=== PATIENT | female | born 1935 | race Caucasian/White ===

== ENCOUNTER 2024-08-02 05:27 | Emergency (ER) | payer MEDICARE, SELFPAY ==
[2024-08-02 05:28] VITALS: BP 177/105; PULSE 105; RESP 18; TEMP 36.3; O2SAT 96; BMI 28.4
--- NOTE | 2024-08-02 05:35 | RAD_ITS ---
EXAM: XR LEFT SHOULDER COMPLETE, 2 OR MORE VIEWS CLINICAL INDICATION: INJURY TECHNIQUE: Two or more views of the left shoulder. COMPARISON: No relevant prior studies available. FINDINGS: BONES/JOINTS: Impacted proximal humeral metaphyseal fracture as well as a probable fracture through the greater tuberosity. Degenerative changes of the acromioclavicular and glenohumeral joints. No sclerotic or destructive changes observed. SOFT TISSUES: Unremarkable. No soft tissue swelling or gas. No radiopaque foreign body. RAD/Shoulder min 2 Views IMPRESSION: Impacted proximal humeral metaphyseal fracture as well as a probable fracture through the greater tuberosity. Electronically Signed: Damion Bean MD at 6:19 EDT ,
--- NOTE | 2024-08-02 05:35 | EX.ED.UPPERE ---
HPI History of Present Illness Chief Complaint: Upper Extremity Injury Informant: patient and family Narrative Narrative: 88-year-old female presenting to the room with left shoulder pain. Reportedly the patient fell last night. This injury occurred approximately 2000 hours she states that she recently moved in with her daughter. Daughter states that she took the night lights out of her room. She is unsure of what she hit or how she landed. She does have some memory issues/Alzheimer's. She denies any other injuries. She notes pain in the mid to proximal left arm with any movement. [facility] Medical History Cholecystectomy planned Congestive heart failure (CHF) Hypertension Home Medications ?Medication ?Instructions ?Recorded ?Last Taken ?Type aspirin 81 mg capsule 81 mg PO DAILY 08/02/24 Unknown History cholecalciferol (vitamin D3) 50 2,000 unit PO BID 08/02/24 Unknown History mcg (2,000 unit) capsule (D3-2000) diphenoxylate-atropine 2.5 1 tab PO DAILY 08/02/24 Unknown History mg-0.025 mg tablet (Lomotil) escitalopram oxalate 20 mg tablet 20 mg PO DAILY 08/02/24 Unknown History furosemide 20 mg tablet (Lasix) 20 mg PO DAILY 08/02/24 Unknown History levothyroxine 75 mcg tablet 75 mcg PO DAILY 08/02/24 Unknown History (Euthyrox) melatonin 3 mg capsule 3 mg PO QHS 08/02/24 Unknown History mirtazapine 7.5 mg tablet 7.5 mg PO QHS 08/02/24 Unknown History omeprazole 20 mg capsule,delayed 20 mg PO DAILY 08/02/24 Unknown History release oxycodone 5 mg tablet 5 mg PO TID PRN pain 3 days #12 08/02/24 Unknown Rx tabs potassium 20 mg chewable tablet 10 mg PO 08/02/24 Unknown History vitamins A,C,T-cudd-ufqhst 2,148 1 tab PO DAILY 08/02/24 Unknown History mcg-113 mg-45 mg-17.4 mg tablet (Eye Multivitamin) Allergy/AdvReac Type Severity Reaction Status Date / Time No Known Allergies Allergy Verified 08/02/24 05:33 Surgical History H/O: hysterectomy Social History Smoking Status: Never smoker ROS ROS ED Constitutional Constitutional ED: Denies chills, fever(s) or weight loss Eyes Eyes: Denies change in vision or diplopia ENT ENT ED: Denies ear pain, rhinorrhea or sore throat Cardiovascular Cardiovascular: Denies chest pain, orthopnea, palpitations or racing heartbeat Respiratory/Chest Respiratory/Chest: Denies cough, dyspnea or orthopnea Gastrointestinal Gastrointestinal: Denies abdominal pain, diarrhea, nausea or vomiting Genitourinary Genitourinary ED: Denies dysuria, hematuria or urinary frequency Musculoskeletal Musculoskeletal: Reports other Details: See history of present illness ; Denies arthralgias, back pain, myalgias or neck pain Integumentary Denies abscess or rash Neurologic Neurologic: Denies headache(s), paresthesias or weakness Psychiatric Psychiatric: Denies anxiety, depression, suicidal ideation or suicidal thoughts Endocrine Endocrinology: Denies polydipsia, polyphagia or polyuria Allergic/Immunologic Allergic/Immunologic ED: Denies mouth swelling, tongue swelling or urticaria EXAM Physical Exam Const Vital Signs: 08/02/24 05:28 Temperature 97.4 F L Temperature Source Oral Pulse Rate 105 H Respiratory Rate 18 Blood Pressure 177/105 H Blood Pressure Mean 129 Pulse Ox 96 Oxygen Delivery Method Room Air Positive well nourished and well developed General Appearance ED: well developed HEENT Reports normocephalic, head/scalp atraumatic and moist mucous membranes Eyes PERRL and EOMs intact bilaterally Neck full ROM, no lymphadenopathy, supple and no JVD Resp normal respiratory effort and clear to auscultation bilaterally Cardio regular rate, regular rhythm and no murmurs GI normal to inspection, nondistended, normoactive bowel sounds and non-tender Palpation: soft Back/Spine no CVA tenderness and normal ROM Extremity Extremity Narrative: Limited range of motion of the left shoulder. General Extremety ED: Negative for edema General Extremity: Negative for edema Neuro CN's II-XII intact bilaterally Sensorium / Orientation: alert, oriented to person, oriented to place and oriented to time Motor Exam: strength 5/5 throughout Psych mental status grossly normal Mood & Affect: Negative for depressed or tearful Skin no rashes or lesions noted and no wounds MDM MDM MDM Narrative Medical decision making narrative: Differential diagnosis includes but not limited to fracture sprain strain rotator cuff injury neurovascular injury I depend interpretation of the plain films of the left shoulder is a acute proximal humerus fracture. Patiently placed in a sling. She states Tylenol has helped her throughout the night and she would like to stick with that. I will write for a few oxycodone for breakthrough pain. We recommend ice. Daughter states that they would like to follow-up with Dr. Tran which I think would be appropriate. History & Record Review Discussion w/independent historian: Patient and Family Discharge Plan Triage Chief Complaint: Upper Extremity Injury ED Provider: Derek Roberts Dx/Rx/DC Orders Clinical Impression: Fall, Fracture of proximal end of left humerus Instructions: ED Fracture, Shoulder Prescriptions: New oxycodone 5 mg tablet 5 mg PO TID PRN (Reason: pain) 3 Days Qty: 12 0RF No Action diphenoxylate-atropine [Lomotil] 2.5-0.025 mg tablet 1 tab PO DAILY levothyroxine [Euthyrox] 75 mcg tablet 75 mcg PO DAILY Patient Comments: THURSDAY TAKES 150MG furosemide [Lasix] 20 mg tablet 20 mg PO DAILY potassium 20 mg tablet,chewable 10 mg PO Patient Comments: 10MEQ TIDX WEEK escitalopram oxalate 20 mg tablet 20 mg PO DAILY mirtazapine 7.5 mg tablet 7.5 mg PO QHS melatonin 3 mg capsule 3 mg PO QHS aspirin 81 mg capsule 81 mg PO DAILY cholecalciferol (vitamin D3) [D3-2000] 50 mcg (2,000 unit) capsule 2,000 unit PO BID omeprazole 20 mg capsule,delayed release(DR/EC) 20 mg PO DAILY Eye Multivitamin 2,148 mcg-113 mg-45 mg-17.4mg tablet 1 tab PO DAILY Rx Instructions: administer with AM and PM meals Primary Care Provider: KRISTAN BETTENCOURT Referrals: Job Tran MD [Med Staff - Active Staff] - As soon as possible NOT,DEFINED [Non-Staff] - Print Language: Romanian Disposition Disposition: Home, Self Care
[2024-08-02 06:17] VITALS: BP 143/79; PULSE 92; RESP 18; TEMP 36.1; O2SAT 94
== END 2024-08-02 06:32 | disposition home or self-care (01) ==
PROVIDERS: Emergency Provider Emergency Medicine; Visit Provider Emergency Medicine
DX: S42.292A Other displaced fracture of upper end of left humerus, initial encounter for closed fracture (principal); I11.0 Hypertensive heart disease with heart failure; I50.9 Heart failure, unspecified; G30.9 Alzheimer's disease, unspecified; W19.XXXA Unspecified fall, initial encounter; Z79.82 Long term (current) use of aspirin; Z79.890 Hormone replacement therapy; Z79.899 Other long term (current) drug therapy
CPT/HCPCS: 73030; 99282

== ENCOUNTER 2025-01-09 12:18 | Emergency (ER) | payer MEDICARE, SELFPAY ==
[2025-01-09] VITALS (12 sets, daily range): BP systolic 124–161; BP diastolic 67–98; PULSE 81–122; RESP 14–30; TEMP 36.4–36.7; O2SAT 91–97; BMI 30.7
--- NOTE | 2025-01-09 13:27 | RAD_ITS ---
EXAM: XR Chest, 2 Views CLINICAL INDICATION: TECHNIQUE: Frontal and lateral views of the chest. COMPARISON: No relevant prior studies available. FINDINGS: LUNGS AND PLEURAL SPACES: See below. HEART: Cardiomegaly with mild congestion. MEDIASTINUM: Unremarkable. Normal mediastinal contour. BONES/JOINTS: Unremarkable. No acute fracture. RAD/Chest PA and Lateral IMPRESSION: Cardiomegaly with mild congestion. [facility]
--- NOTE | 2025-01-09 13:27 | EKG12_ITS ---
Test Reason : Blood Pressure : */* mmHG Vent. Rate : 80 BPM Atrial Rate : 80 BPM P-R Int : 152 ms QRS Dur : 140 ms QT Int : 454 ms P-R-T Axes : 41 -36 107 degrees QTcB Int : 523 ms Sinus rhythm with occasional Premature ventricular complexes Left axis deviation Left bundle branch block Abnormal ECG Confirmed by Mendoza Spain ([id number]), scientific editor AVILA HA ([id number]) on 01/10/2025 10:56:02 AM Referred By: Confirmed By: Mendoza Spain
--- NOTE | 2025-01-09 13:37 | EX.ED.DYSGE1 ---
HPI History of Present Illness Chief Complaint: GI Bleed Narrative Narrative: Chief complaint and HPI: Hematemesis. 89-year-old female with past medical history of HTN, CHF, dementia, hypothyroidism, and PUD presents for evaluation of hematemesis. History is slightly limited as patient has dementia. Per daughter, shortly after eating breakfast patient had an episode of coughing and then developed 1 episode of hematemesis. Hematemesis was bright red blood. Daughter believes it came from her vomit and not from her cough. Patient states it came from vomiting as well. Currently denies any symptoms. Daughter states for the past several weeks that the patient has been endorsing increased fatigue and intermittent lightheadedness. She has not seen her PCP. She is not on blood thinners but on aspirin. Patient currently not endorsing any lightheadedness. Patient and daughter deny any fever, chills, shortness of breath, URI symptoms, chest pain, frequent coughing, abdominal pain, diarrhea, constipation, dysuria, dark or bloody stools. Has been eating and drinking well. Review of systems: See HPI Medications: As listed on the chart Allergies: As listed on the chart PFSH: Per chart Vital signs: As listed on the chart. Reviewed. Physical exam: Gen: A&O x3, NAD Head: Normocephalic, atraumatic Eyes: No sclera icterus, conjunctiva clear, PERRL, EOMI ENT: Moist mucous membranes, no dried blood in the mouth Neck: Trachea midline, No JVD CV: RRR, no murmurs, no peripheral edema Resp: Lungs CTA BL, no w/r/c GI: Abd soft, non-distended, non-tender, no r/r/g Rectal: Normal external examination. No evidence of hemorrhoids or fissures. Normal tone and sensation. No masses, fluctuance, or tenderness. No pain out of proportion. Stool brown. : No CVA tenderness Musc: Full ROM, no deformity Skin: Warm, dry Neuro: Alert, oriented, grossly intact, sensation intact Psych: Cooperative, appropriate mood and affect [facility] Medical History Cholecystectomy planned Congestive heart failure (CHF) Hypertension Home Medications ?Medication ?Instructions ?Recorded ?Last Taken ?Type aspirin 81 mg capsule 81 mg PO DAILY 08/02/24 Unknown History cholecalciferol (vitamin D3) 50 2,000 unit PO BID 08/02/24 Unknown History mcg (2,000 unit) capsule (D3-2000) diphenoxylate-atropine 2.5 1 tab PO DAILY 08/02/24 Unknown History mg-0.025 mg tablet (Lomotil) escitalopram oxalate 20 mg tablet 20 mg PO DAILY 08/02/24 Unknown History furosemide 20 mg tablet (Lasix) 20 mg PO DAILY 08/02/24 Unknown History levothyroxine 75 mcg tablet 75 mcg PO DAILY 08/02/24 Unknown History (Euthyrox) melatonin 3 mg capsule 3 mg PO QHS 08/02/24 Unknown History mirtazapine 7.5 mg tablet 7.5 mg PO QHS 08/02/24 Unknown History omeprazole 20 mg capsule,delayed 20 mg PO DAILY 08/02/24 Unknown History release oxycodone 5 mg tablet 5 mg PO Q8H PRN pain 3 days #9 tabs 08/02/24 Unknown Rx oxycodone 5 mg tablet 5 mg PO TID PRN pain 3 days #12 08/02/24 Unknown Rx tabs potassium 20 mg chewable tablet 10 mg PO 08/02/24 Unknown History vitamins A,C,W-znig-hlvoev 2,148 1 tab PO DAILY 08/02/24 Unknown History mcg-113 mg-45 mg-17.4 mg tablet (Eye Multivitamin) Allergy/AdvReac Type Severity Reaction Status Date / Time No Known Allergies Allergy Verified 01/09/25 12:19 Surgical History H/O: hysterectomy Social History Smoking Status: Never smoker EXAM Physical Exam Const Vital Signs: 01/09/25 12:19 01/09/25 13:20 01/09/25 14:00 Temperature 97.5 F L Temperature Source Oral Pulse Rate 122 H 89 81 Respiratory Rate 20 H 14 15 Blood Pressure 155/96 H 124/67 H 145/78 H Blood Pressure Mean 115 86 100 Pulse Ox 96 94 96 Oxygen Delivery Method Room Air Room Air Room Air 01/09/25 15:00 01/09/25 15:14 01/09/25 15:15 Temperature Temperature Source Pulse Rate 90 84 87 Respiratory Rate 16 14 21 H Blood Pressure 151/85 H 151/85 H Blood Pressure Mean 107 102 Pulse Ox 96 95 96 Oxygen Delivery Method Room Air 01/09/25 15:30 01/09/25 15:45 01/09/25 16:00 Temperature Temperature Source Pulse Rate 89 88 Respiratory Rate 18 19 H Blood Pressure 144/86 H 153/96 H 151/91 H Blood Pressure Mean 102 114 106 Pulse Ox 97 93 Oxygen Delivery Method 01/09/25 16:15 01/09/25 16:30 Temperature Temperature Source Pulse Rate 102 H 92 Respiratory Rate 30 H 26 H Blood Pressure 161/98 H 153/85 H Blood Pressure Mean 112 105 Pulse Ox 91 96 Oxygen Delivery Method MDM MDM MDM Narrative Medical decision making narrative: 89-year-old female with past medical history of HTN, CHF, dementia, hypothyroidism, and PUD presents for evaluation of hematemesis. Differential diagnosis includes but is not limited to hematemesis, hemoptysis, anemia, pneumonia, electrolyte abnormality, viral illness, gastritis, ulcer, PE, ACS. On presentation patient is hypertensive and tachycardic. Patient currently asymptomatic without any complaints. Laboratory workup ordered including chest x-ray. Do not think any CT abdomen pelvis is needed as patient is not endorsing any abdominal pain and physical exam is benign. EKG and chest x-ray reviewed. CBC without leukocytosis or anemia. CMP with renal insufficiency. Creatinine is 1.46. I do not have previous labs to compare to. No transaminitis. Lipase unremarkable. Lactic acid unremarkable. BNP is 739, this is within normal limits given her age. D-dimer elevated at 1.55. Cannot rule out PE. CTA chest ordered. Will give small 500 cc bolus due to contrast. CTA negative for PE. Patient has scattered mediastinal lymph nodes some of which are the upper limits of normal in size. Most likely reactive. Moderate esophageal hiatal hernia. UA negative for UTI. Troponin 22 and 25. On reevaluation, patient is now endorsing some chest heaviness. Patient has not had any recurrent hematemesis or hemoptysis. Patient and daughter were updated on all the results. Given that patient is having chest heaviness with elevated troponin as well as an episode of hematemesis I recommended admission for further cardiac workup and observation for hematemesis. Patient states she does not want to be admitted. Patient states that she would not want a stress test or cardiac catheterization. She further states that she would not want any surgery or invasive procedures such as endoscopy. She states that she does not want any further workup or medication changes. Daughter is in the room and is a nurse and she states that she would like to respect the patient's wishes and that she has stated in the past that she would not want any aggressive or further treatment. I did personally explain to the patient as well as her daughter that I cannot rule out a heart attack at this time and her troponins are concerning for cardiac injury/ischemia. I further do not have the cause or reasoning for her hematemesis. I personally explained to them that choosing to discharge home may result in permanent bodily harm or . I discussed at length that without further evaluation and monitoring there may be unforeseen circumstances or deterioration causing deterioration or because of discharge. Patient is alert and oriented and can make her own decisions despite her dementia. Daughter is a nurse and also confirmed understanding that there is a risk to and permanent bodily harm. They both accepted the risks and understand them. They were explained the benefits to admission. Patient was able to ambulate in the emergency department without difficulty. Plan will be to discharge home. Patient is to follow-up with PCP. I did educate the patient as well as daughter that if patient's symptoms worsen or change please return back to the ED. I also informed that if patient changes her mind and decides that she wants further treatment to return back to the ED. They confirmed understanding of the plan. Patient discharged home. EKG: Interpreted by me/EM physician: EKG shows normal sinus rhythm with PVCs. Left bundle branch block. No acute ischemic changes. Heart rate 80. Diagnostic: Interpreted by me/EM physician: Chest x-ray shows cardiomegaly with mild vascular congestion Impression: 1. Hematemesis 2. Elevated troponin with chest heaviness, concern for ACS 3. Renal insufficiency versus MIKEY Lab Data Labs: Laboratory Results - last 24 hr 01/09/25 01/09/25 01/09/25 12:30 13:37 13:44 WBC 7.0 RBC 4.30 Hgb 13.5 Hct 40.8 MCV 94.9 MCH 31.4 MCHC 33.1 RDW Std Deviation 47.9 H RDW Coeff of [place] 13.7 Plt Count 233 MPV 11.9 Immature Gran % (Auto) 0.300 Neut % (Auto) 42.3 L Lymph % (Auto) 43.8 H Frontier % (Auto) 7.2 Eos % (Auto) 4.7 Baso % (Auto) 1.7 H Absolute Neuts (auto) 3.0 Absolute Lymphs (auto) 3.06 Nucleated RBC % 0 D-Dimer Quant (PE/DVT) 1.55 H* Sodium 142 Potassium 3.9 Chloride 107 Carbon Dioxide 22.4 Anion Gap 13 BUN 24 H Creatinine 1.46 H Estim Creat Clear Calc 26.95 L Est GFR (MDRD) Non-Af 35 L BUN/Creatinine Ratio 16.2 Glucose 102 H Lactic Acid 1.5 Calcium 9.8 Total Bilirubin 0.38 AST 20 ALT 7 Alkaline Phosphatase 127 H Troponin T High Sens 22 H Troponin T Hi Sens 2 Hr NT pro BNP II 739 Total Protein 6.9 Albumin 3.8 Globulin 3.2 Albumin/Globulin Ratio 1.2 Lipase 61 Urine Color Yellow Urine Clarity Clear Urine pH 7.0 Ur Specific [place] 1.010 Urine Protein Negative Urine Glucose (UA) Normal Urine Ketones Negative Urine Occult Blood 10 H Urine Nitrite Negative Urine Bilirubin Negative Urine Urobilinogen Normal Ur Leukocyte Esterase Negative Urine RBC 0-5 SEEN Urine WBC 0 SEEN Ur Squamous Epith Cells 0 SEEN Urine Bacteria 0 SEEN Urine Mucus 0 SEEN 01/09/25 15:35 WBC RBC Hgb Hct MCV MCH MCHC RDW Std Deviation RDW Coeff of [place] Plt Count MPV Immature Gran % (Auto) Neut % (Auto) Lymph % (Auto) Frontier % (Auto) Eos % (Auto) Baso % (Auto) Absolute Neuts (auto) Absolute Lymphs (auto) Nucleated RBC % D-Dimer Quant (PE/DVT) Sodium Potassium Chloride Carbon Dioxide Anion Gap BUN Creatinine Estim Creat Clear Calc Est GFR (MDRD) Non-Af BUN/Creatinine Ratio Glucose Lactic Acid Calcium Total Bilirubin AST ALT Alkaline Phosphatase Troponin T High Sens Troponin T Hi Sens 2 Hr 25 H NT pro BNP II Total Protein Albumin Globulin Albumin/Globulin Ratio Lipase Urine Color Urine Clarity Urine pH Ur Specific [place] Urine Protein Urine Glucose (UA) Urine Ketones Urine Occult Blood Urine Nitrite Urine Bilirubin Urine Urobilinogen Ur Leukocyte Esterase Urine RBC Urine WBC Ur Squamous Epith Cells Urine Bacteria Urine Mucus Radiography Diagnostic Testing: Clinical Impression(s) from Imaging Studies Chest X-Ray 01/09/25 13:27 IMPRESSION: Cardiomegaly with mild congestion. Reading Location: [facility] Chest CTA 01/09/25 14:15 IMPRESSION: 1. No pulmonary embolism is identified. Some of the distal pulmonary arteries cannot be evaluated due to suboptimal opacification. 2. Scattered mediastinal lymph nodes some of which are upper limits of normal in size and are most likely reactive lymph nodes. 3. Moderate esophageal hiatal hernia. Reading Location: [facility] Discharge Plan Triage Chief Complaint: GI Bleed ED Provider: Art Tai Dx/Rx/DC Orders Clinical Impression: Hematemesis of unknown cause Instructions: GI Bleeding Causes and Tests Prescriptions: No Action diphenoxylate-atropine [Lomotil] 2.5-0.025 mg tablet 1 tab PO DAILY levothyroxine [Euthyrox] 75 mcg tablet 75 mcg PO DAILY Patient Comments: THURSDAY TAKES 150MG furosemide [Lasix] 20 mg tablet 20 mg PO DAILY potassium 20 mg tablet,chewable 10 mg PO Patient Comments: 10MEQ TIDX WEEK escitalopram oxalate 20 mg tablet 20 mg PO DAILY mirtazapine 7.5 mg tablet 7.5 mg PO QHS melatonin 3 mg capsule 3 mg PO QHS aspirin 81 mg capsule 81 mg PO DAILY cholecalciferol (vitamin D3) [D3-2000] 50 mcg (2,000 unit) capsule 2,000 unit PO BID omeprazole 20 mg capsule,delayed release(DR/EC) 20 mg PO DAILY Eye Multivitamin 2,148 mcg-113 mg-45 mg-17.4mg tablet 1 tab PO DAILY Rx Instructions: administer with AM and PM meals oxycodone 5 mg tablet 5 mg PO TID PRN (Reason: pain) 3 Days Qty: 12 0RF oxycodone 5 mg tablet 5 mg PO Q8H PRN (Reason: pain) 3 Days Qty: 9 0RF Primary Care Provider: KRISTAN BETTENCOURT Referrals: KRISTAN BETTENCOURT [Other] - 3-5 Days Activity Restrictions/Additional Instructions: Follow-up with your primary care physician. Return back to the ED if symptoms change or recur. Return back to the ED if you decide that you would like to undergo further treatment which you currently declined. Print Language: Somali Disposition Disposition: Home, Self Care
[2025-01-09 13:40] LABS: Absolute Lymphocyte Count 3.06 X10^3/uL (0.83-4.51); Basophil# 0.12 X10^3/uL; Basophil% 1.7 % (0-1); Eosinophil# 0.33 X10^3/uL; Eosinophils% 4.7 % (0-5); Hematocrit 40.8 % (37-47); Hemoglobin 13.5 g/dL (12.0-15.0); Lymphocyte # 3.06 X10^3/ul (0.83-4.51); Lymphocyte % 43.8 % (19-41); Mean Corp Hgb Conc 33.1 g/dL (32-36); Mean Corpuscular Hgb 31.4 pg (27.0-32.0); Mean Corpuscular Volume 94.9 fL (81-99); Mean Platelet Vol. 11.9 fl (6.2-12.0); Monocyte% 7.2 % (0-10); NRBC Flagged by Analyzer 0 % (0-5); Neutrophil # 2.96 X10^3/uL (2.7-7.7); Neutrophil % 42.3 % (47-70); Platelet Count 233 K/mm3 (150-450); RBC Distribution Width CV 13.7 % (11.6-14.6); RBC Distribution Width SD 47.9 fl (35.1-43.9)
[2025-01-09 13:54] LABS: Bacteria 0 SEEN /hpf (None Seen); Mucous, Urine 0 SEEN /hpf (<or=2+); Squamous Epithelial Cells - UA 0 SEEN /hpf (5-10); White Blood Cells 0 SEEN /hpf (0-5)
[2025-01-09 13:56] LABS: D-Dimer Quantitative (DVT/PE) 1.55 FEU/ug/m (0.27-0.49)
[2025-01-09 14:00] LABS: Color, Urine Yellow (Yellow); Glucose, Dipstick Normal (Normal); Ketone-Dipstick Negative (Negative); Leukocyte Esterase-Dipstick Negative /ul (Negative); Nitrite-Dipstick Negative (Negative); Occult Blood-Urine 10 /ul (Negative); Protein-Dipstick Negative (Negative); Urine Bilirubin Dipstick Negative (Negative); Urine Clarity Clear (Clear); Urine Urobilinogen Normal (Normal)
[2025-01-09 14:14] LABS: ALB/GLOB Ratio 1.2 RATIO (0.9-2.4); AST(SGOT) 20 U/L (<=31); Alanine Aminotransfer ALT/SGPT 7 U/L (<=34); Albumin, Serum 3.8 g/dL (3.4-4.8); Alkaline Phosphatase 127 U/L (35-104); Anion Gap 13 (5-15); BUN 24 mg/dL (4-19); BUN/Creat Ratio 16.2 RATIO (10-20); Calcium,Total 9.8 mg/dL (7.6-11.0); Carbon Dioxide 22.4 mmol/L (21.0-32.0); Chloride 107 mmol/L (98-108); Creatinine, Serum 1.46 mg/dL (0.70-1.20); EST Glomerular Filtration Rate 35 (>60); Estimated Creatinine Clearance 26.95 ml/min (50-250); Globulin 3.2 g/dL (2.2-4.2); Glucose 102 mg/dL (70-99); Lipase 61 U/L (13-75); Potassium 3.9 mmol/L (3.3-5.1); Pro- Brain NATRIURETIC PEPTIDE 739 pg/mL (<=1800); Protein, Total 6.9 g/dL (5.9-8.4); Sodium Level 142 mmol/L (133-145); Total Bilirubin 0.38 mg/dL (0.00-1.30)
--- NOTE | 2025-01-09 14:15 | CT_ITS ---
EXAM: CT Angiography Chest Without and With Intravenous Contrast CLINICAL INDICATION: TECHNIQUE: Axial computed tomographic angiography images of the chest without and with intravenous contrast. This CT exam was performed using one or more of the following dose reduction techniques: automated exposure control, adjustment of the mA and/or kV according to patient size, and/or use of iterative reconstruction technique. MIP reconstructed images were created and reviewed. COMPARISON: No relevant prior studies available. FINDINGS: LIMITATIONS: Suboptimal opacification of the pulmonary arteries. PULMONARY ARTERIES: No pulmonary embolism is identified. Some of the distal pulmonary arteries cannot be evaluated due to suboptimal opacification. AORTA: Scattered calcified atherosclerotic disease of aorta. No thoracic aortic aneurysm. LUNGS AND PLEURAL SPACES: Lung emphysema/COPD. No mass. No consolidation. No significant effusion. No pneumothorax. HEART: Unremarkable. No cardiomegaly. No significant pericardial effusion. No evidence of RV dysfunction. MEDIASTINUM: Scattered mediastinal lymph nodes some of which are upper limits of normal in size and are most likely reactive lymph nodes. Moderate esophageal hiatal hernia. BONES/JOINTS: No acute fracture. No dislocation. SOFT TISSUES: Unremarkable. LYMPH NODES: See above. CT/CTA Chest W/WO Contrast IMPRESSION: 1. No pulmonary embolism is identified. Some of the distal pulmonary arteries cannot be evaluated due to suboptimal opacification. 2. Scattered mediastinal lymph nodes some of which are upper limits of normal in size and are most likely reactive lymph nodes. 3. Moderate esophageal hiatal hernia. Reading Location: [facility]
[2025-01-09 14:35] LABS: Lactic Acid 1.5 mmol/L (0.0-2.0)
[2025-01-09 14:46] LABS: Troponin T High Sensitivity 22 ng/L (<=14)
[2025-01-09 15:04] LABS: Red Blood Cells-Urine 0-5 SEEN /hpf (0-5)
[2025-01-09] MEDS: 0.9% Normal Saline (500mL Bag) 500 ML 1000 ML IV (15:19)
[2025-01-09 16:09] LABS: Troponin T High Sens 2 HR 25 ng/L (<=14)
--- NOTE | 2025-01-09 16:45 | ED.RN ---
This RN discussed the risks of leaving without treatment. Pt verbalizes she understands and states she is a DNR CC. Dr Cain at bedside to discuss as well. Pt and family member verbalizes the risks.
== END 2025-01-09 16:46 | disposition home or self-care (01) ==
PROVIDERS: Emergency Provider Surgery; Visit Provider Surgery
DX: K92.0 Hematemesis (principal); I11.0 Hypertensive heart disease with heart failure; I50.9 Heart failure, unspecified; F03.90 Unspecified dementia, unspecified severity, without behavioral disturbance, psychotic disturbance, mood disturbance, and anxiety; Z87.11 Personal history of peptic ulcer disease; R79.89 Other specified abnormal findings of blood chemistry; Z11.52 Encounter for screening for COVID-19; K44.9 Diaphragmatic hernia without obstruction or gangrene; E03.9 Hypothyroidism, unspecified; Z79.82 Long term (current) use of aspirin; Z79.890 Hormone replacement therapy; Z79.899 Other long term (current) drug therapy
CPT/HCPCS: 71046; 71275; 80053; 81001; 82274; 83605; 83690; 83880; 84484; 85025; 85379; 87631; 93005; 96360; 99284; Q9967; A4216

== ENCOUNTER → 2025-03-25 | Outpatient (CLI) | payer MEDICARE, SELFPAY ==
[2025-03-25 15:53] LABS: Mucous, Urine 0 SEEN /hpf (<or=2+); Squamous Epithelial Cells - UA 0 SEEN /hpf (5-10)
[2025-03-25 16:13] LABS: Color, Urine Straw (Yellow); Glucose, Dipstick Normal (Normal); Ketone-Dipstick Negative (Negative); Leukocyte Esterase-Dipstick 500 /ul (Negative); Nitrite-Dipstick Negative (Negative); Occult Blood-Urine 250 /ul (Negative); Protein-Dipstick 100 mg/dl (Negative); Urine Bilirubin Dipstick Negative (Negative); Urine Clarity Cloudy (Clear); Urine Urobilinogen Normal (Normal)
[2025-03-25 16:32] LABS: Bacteria 3+ /hpf (None Seen); Red Blood Cells-Urine 10-25 SEEN /hpf (0-5); Renal Epithelial Cells 0-5 SEEN /hpf (0-5); White Blood Cells 50-100 SEEN /hpf (0-5)
== END | disposition home or self-care (01) ==
LOC: OLS.HOSPIC 15:52
PROVIDERS: Visit Provider Nurse Practitioner Family
DX: N39.0 Urinary tract infection, site not specified (principal)
CPT/HCPCS: 81001; 87086; 87088